=== PATIENT | female | born 1950 | race Caucasian/White ===

== ENCOUNTER → 2016-10-31 | Outpatient (CLI) | payer OTHER ==
[~2016-10-31] MED LIST: ASPCH81X PO; CALC-51 PO; CHOL2000 PO; DILT120C99 PO; FLAX1CAP11 PO; MISCCAP80 PO; OMEG10007 PO; PSYL0.524 PO
== END | disposition home or self-care (01) ==
LOC: C.RDSM 12:28
PROVIDERS: ATTEND Physical Medicine & Rehabilitation
DX: M46.1 Sacroiliitis, not elsewhere classified (principal)

== ENCOUNTER → 2017-01-11 | Day surgery (SDC) | payer OTHER ==
[2016-11-23 08:16] VITALS: BMI 22.0
[2016-12-11 11:47] VITALS: Ht 170.2 cm; Wt 65.9 kg
[~2017-01-11] VITALS: Ht 170.2 cm; Wt 65.9 kg
[~2017-01-11] MED LIST changes: +ATROPINE SULFATE 0.1 MG/ML 5ML SYR IV PRN; +EpHEDrine SULFATE INJ 50 MG/ML AMP IV PRN; +FENTANYL CITRATE INJ 50 MCG/1 ML 2 ML VIAL ONE; +LACTATED RINGER'S 1000ML 1,000 ML IV SCH; +LIDOCAINE HCL 1% 20 ML VIAL ONE; +LIDOCAINE HCL 2% 2 ML VIAL (20MG/ML) ONE; +PROPOFOL IV EMULSION 10 MG/ML 20 ML VIAL IV ONE
--- NOTE | 2017-01-11 07:51 | History & Physical Bridge - [place] ---
H&P Re-Evaluation Bridge Note: I have examined the patient, reviewed the History & Physical and in the interval since the performance of the History & Physical I have noted the following changes of clinical significance: No changes noted
--- NOTE | 2017-01-11 08:51 | Discharge Instructions ---
Discharge Instructions Date of Service Jan 11, 2017. Visit Reason for Visit: Sacroiliitis Discharge Discharge Diagnosis / Problem: low back pain Discharge Goals Goal(s): Decrease discomfort, Improve function Activity Recommendations Activity Limitations: resume your previous activity Anesthesia . Post Anesthesia Instructions: If you have had General Anesthesia or IV Sedation: * Do not drive today. * Resume driving when surgeon permits. * Do not make important decisions or sign legal documents today. * Call surgeon for: 1. Temperature elevations greater than 101 degrees F. 2. Uncontrollable pain. 3. Excessive bleeding. 4. Persistent nausea and vomiting. 5. Medication intolerance (nausea, vomiting or rash). * For nausea and vomiting use only clear liquids such as: tea, soda, bouillon until nausea subsides, then gradually increase diet as tolerated. * If you have any concerns or questions, call your surgeon's office. If physician is unavailable and it is an emergency, call 911 or go to the nearest emergency room. . Diet Recommendations Recommended Home Diet: resume previous diet Procedures Procedures Performed: Right Cooled Sacroiliac Joint Denervation Pending Studies Studies pending at discharge: no Medical Emergencies . Who to Call and When: Medical Emergencies: If at any time you feel your situation is an emergency, please call 911 immediately. . Non-Emergent Contact Non-Emergency issues call your: Specialist . . "Provider Documentation" section prepared by Hernando Rucker. .
--- NOTE | 2017-01-11 09:07 | OPERATIVE REPORT ---
DATE OF OPERATION: 01/11/2017 PREOPERATIVE DIAGNOSIS: Right sacroiliitis. POSTOPERATIVE DIAGNOSIS: Same. PROCEDURE: Right SI joint radiofrequency cooled denervation. INDICATIONS: The patient is a 66-year-old white female who has undergone SI joint injections that were beneficial for the time of the block. This confirmed the SI joint as a significant pain generator and it was felt that rather than continue to inject with steroids as it did provide her with some weeks or months of relief that the denervation would provide her with longer lasting relief. PHYSICAL EXAMINATION: Pleasant female seated comfortably. She has point tender to palpation over her right SI joint. It is worse with extension and positive with a modified Silvia maneuver. She has normal motor and sensory exam of her lower extremities. CONSENT: Verbal and written consent was obtained from the patient. Risks and benefits were reviewed. Risks include, but are not limited to abscess, allergic reaction and denervation. The patient wishes to proceed. DESCRIPTION OF PROCEDURE: The patient was taken back to the special procedures room of the [facility], where she was maintained in a prone position. She had conscious sedation throughout the procedure, but was able to converse freely and appropriately. Backside was cleansed with Betadine x3 and a dry sterile dressing was applied. Fluoroscope was used to identify the right SI joint and the right sacroiliac region. She underwent anesthetization on the superior lateral aspect of S1 with 4 mL of lidocaine 1% and on the lateral aspect of S2 with an additional 3 mL of lidocaine for a total of 7 mL of lidocaine. The probe was then placed in 8 separate spots and cooled 60 degrees for 2 minutes and 30 seconds first at the right sacral ala, then at the right superior lateral S1 foramen, then at the right lateral S1 foramen, then at the right inferior lateral S1 foramen, then at the right superior lateral S2 foramen, then at the right S2 lateral foramen, then at the right inferior lateral S2 foramen, and then at the right lateral S3 foramen. Procedure was well tolerated. DISPOSITION: 1. The patient is taken out into the discharge recovery area where, she will be discharged home once discharge criteria have been met. 2. Follow up in the [facility] office in 2-4 weeks. I attest to the content of the Intraoperative Record and any orders documented therein. Any exceptio ns are noted below.
[2017-01-11 09:11] VITALS: BP 107/63; PULSE 68; O2SAT 96
--- NOTE | 2017-01-11 09:14 | Anesthesia Progress Nt - [facility] ---
Anesthesia Post Op Note Date & Time Jan 11, 2017 at 09:14 Vital Signs Pain Intensity: 0 Vital Signs Past 12 Hours Date Time Temp Pulse Resp B/P Pulse Ox O2 Delivery O2 Flow Rate FiO2 01/11/17 08:52 36.5 59 16 102/65 96 Room Air 01/11/17 07:13 36.8 65 18 111/71 98 Room Air Notes Mental Status: alert / awake / arousable, participated in evaluation Pt Amnestic to Procedure: Yes Nausea / Vomiting: adequately controlled Pain: adequately controlled Airway Patency, RR, SpO2: stable & adequate BP & HR: stable & adequate Hydration State: stable & adequate Anesthetic Complications: no major complications apparent
== END | disposition home or self-care (01) ==
LOC: X.SURG 06:59
PROVIDERS: ATTEND Physical Medicine & Rehabilitation
DX: M46.1 Sacroiliitis, not elsewhere classified (principal); Z68.23 Body mass index [BMI] 23.0-23.9, adult; M19.90 Unspecified osteoarthritis, unspecified site

== ENCOUNTER → 2017-04-17 | Outpatient (CLI) | payer OTHER ==
[~2017-04-17] MED LIST changes: -ATROPINE SULFATE 0.1 MG/ML 5ML SYR IV PRN; -EpHEDrine SULFATE INJ 50 MG/ML AMP IV PRN; -FENTANYL CITRATE INJ 50 MCG/1 ML 2 ML VIAL ONE; -LACTATED RINGER'S 1000ML 1,000 ML IV SCH; -LIDOCAINE HCL 1% 20 ML VIAL ONE; -LIDOCAINE HCL 2% 2 ML VIAL (20MG/ML) ONE; -OMEG10007 PO; -PROPOFOL IV EMULSION 10 MG/ML 20 ML VIAL IV ONE
--- NOTE | 2017-04-17 15:31 | DIAGNOSTIC IMAGING REPORT ---
WHOLE-BODY NUCLEAR BONE SCAN CLINICAL HISTORY: Sacroiliitis. Right clavicular pain. COMPARISON STUDY: Radiographs of lumbar spine dated 10/31/2016. Radiographs of the hips and pelvis dated 10/31/2016. TECHNIQUE: Three hours following the IV administration of 27.5 mCi of technetium 99m MDP, whole body nuclear bone scan was performed in the anterior and posterior projections. FINDINGS: There is no abnormal osseous tracer deposition identified typical in appearance for bony metastatic disease or destructive bony process. 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 Typically degenerative uptake is identified in the shoulders, knees, and ankles. Mild degenerative activity and scoliosis is noted in the thoracic spine. No abnormal tracer deposition is seen in the region of the sacroiliac joints. There is expected excreted activity within the renal collecting system and bladder. Urine contamination is noted in the groin. IMPRESSION: 1. There is no scintigraphic evidence of a destructive bony process. 2. Foci of typically degenerative activity as above. No abnormal tracer deposition is seen involving the sacroiliac joints as clinically queried. Electronically signed by: Orlando De Souza M.D. 04/17/2017 3:30 PM Dictated Date/Time: 04/17/2017 3:27 PM
== END | disposition home or self-care (01) ==
LOC: C.NUCL 11:43
PROVIDERS: ATTEND Physical Medicine & Rehabilitation
DX: M25.519 Pain in unspecified shoulder (principal); M46.1 Sacroiliitis, not elsewhere classified

== ENCOUNTER → 2017-07-24 | Outpatient (CLI) | payer OTHER ==
--- NOTE | 2017-07-25 07:50 | MAMMOGRAPHY REPORT ---
BILATERAL DIGITAL SCREENING MAMMOGRAM TOMOSYNTHESIS WITH CAD: 07/24/2017 CLINICAL HISTORY: Routine screening. Patient has no complaints. TECHNIQUE: Breast tomosynthesis in addition to standard 2D mammography was performed. Current study was also evaluated with a Computer Aided Detection (CAD) system. COMPARISON: Comparison is made to exams dated: 07/02/2016 mammogram, 06/13/2015 mammogram, 06/10/2014 mammogram, 03/18/2012 mammogram, 03/23/2011 mammogram, and 03/21/2011 mammogram - [facility]. BREAST COMPOSITION: There are scattered areas of fibroglandular density in both breasts. FINDINGS: No suspicious masses, calcifications, or areas of architectural distortion are noted in ei ther breast. There has been no significant interval change compared to prior exams. IMPRESSION: ACR BI-RADS CATEGORY 1: NEGATIVE There is no mammographic evidence of malignancy. A 1 year screening mammogram is recommended. The pa tient will receive written notification of the results. Approximately 10% of breast cancers are not detected with mammography. A negative mammographic report should not delay biopsy if a clinically suggestive mass is present. Mabel Baires M.D. ah/:07/24/2017 11:44:30 Computer Security Manager: Gosia NUNEZ(Shira)(Renata), [facility] letter sent: Normal 1/2 BI-RADS Code: ACR BI-RADS Category 1: Negative
== END | disposition home or self-care (01) ==
LOC: C.MAMM 11:24
PROVIDERS: ATTEND Obstetrics & Gynecology
DX: Z12.31 Encounter for screening mammogram for malignant neoplasm of breast (principal)

== ENCOUNTER → 2018-01-07 | Outpatient (CLI) | payer OTHER ==
--- NOTE | 2018-01-07 09:42 | DIAGNOSTIC IMAGING REPORT ---
MRI OF THE LUMBAR SPINE WITHOUT CONTRAST CLINICAL HISTORY: Right lumbar radiculopathy. Right foot drop. COMPARISON STUDY: Lumbar spine radiographs October 31, 2016. TECHNIQUE: Utilizing a 1.5 Destiny magnet and dedicated coil, multiplanar, multiecho imaging of the lumbar spine was performed without IV contrast. FINDINGS: For purposes of numbering on since exam, the L5-S1 disc space is assigned to axial image 27 of 30. There is a transitional vertebra at the lumbosacral junction which is designated as S1 on this exam. When utilizing this numbering scheme, the last true disc spaces at the L5-S1 level with a rudimentary disc at the S1-S2 level. No suspicious marrow replacement is present. Severe multilevel facet arthrosis is present. There are multiple disc bulges. Scattered T1 and T2 hyperintense lesions reflect hemangiomas. Multiple T2 hyperintense lesions within each kidney favor renal cysts that measure up to 3.1 cm. These are suboptimally assessed on this unenhanced examination. Mild dextroscoliosis of lumbar spine is noted. L1-2: There is mild disc bulge. The central canal and left neural foramen are patent. There is mild to moderate right neural foraminal stenosis due to a right foraminal disc protrusion. L2-3: There is mild disc bulge. The central canal and neural foramen are patent. L3-4: There is disc bulge with facet arthrosis. The central canal is patent. There is mild narrowing of the bilateral neural foramen. L4-5: There is disc bulge with facet arthrosis. Mild narrowing of the central canal and lateral recesses. L5-S1: There is mild disc bulge with facet arthrosis. There is mild narrowing of the central canal and lateral recesses. There is severe right neural foraminal stenosis due to a combination of facet arthrosis and disc osteophyte complex. IMPRESSION: 1. Severe right neural foraminal stenosis at L5-S1 due to right foraminal/far right lateral disc osteophyte complex and severe facet arthrosis. 2. Multilevel disc bulges with mild multilevel central canal stenosis. No severe central canal stenosis. 3. Mild to moderate right neural foraminal narrowing at the L1-L2 level due to disc protrusion. 4. Mild dextroscoliosis of the lumbar spine. 5. Transitional vertebra at the lumbosacral junction. Please see above numbering scheme of the lumbar spine. Electronically signed by: Demond Gaffney M.D. 01/07/2018 9:40 AM Dictated Date/Time: 01/07/2018 9:27 AM
== END | disposition home or self-care (01) ==
LOC: C.MRIBC 08:14
PROVIDERS: ATTEND Physical Medicine & Rehabilitation
DX: M21.371 Foot drop, right foot (principal); M54.16 Radiculopathy, lumbar region